=== PATIENT | female | born 1940 | race Caucasian/White ===

== ENCOUNTER 2019-01-30 10:38 | Emergency (ER) | payer MEDICARE ==
[~2019-01-30] VITALS: Ht 172.7 cm; Wt 73.0 kg
[~2019-01-30 10:38] MED LIST: AMIT-189 PO; ATOR10TA87 PO; COR3.125T PO; DIGO125T PO; FLAX100019 PO; GABA-338 PO; GLUC1CAP33 PO; ISOS30TA PO; NORCO10T PO; OMEG1CAP54 PO; OMEP-84 PO; REM15T PO; VALS40TA2 PO; VITC500T PO; VITE1000C PO
--- NOTE | 2019-01-30 11:51 | NUR ---
PATIENT WENT FOR ESOPHAGRAM AND HAS RETURNED TO ROOM. 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 SITTING UP ON GURNEY. RESP UNLABORED.
[2019-01-30] MEDS ORDERED: normal saline 1000ML IV soln IVB ONE (11:55)
--- NOTE | 2019-01-30 12:32 | NUR ---
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 Pt will return to the ED after the procedure.
[2019-01-30 12:35] VITALS: BP 127/73
[2019-01-30] MEDS ORDERED: MIDAZolam 5mg/5ml vial ONE ×3 (12:58→13:43)
[2019-01-30] MEDS ORDERED: LIDOcaine Viscous 15ml cup ONE (12:58)
[2019-01-30] MEDS ORDERED: fentaNYL/PF 50MCG/1 ML 2ML syringe ONE ×2 (12:58→13:43)
--- NOTE | 2019-01-30 13:27 | NUR ---
Pt remains in GI suite at this time.
[2019-01-30 14:39] VITALS: BP 147/74
[2019-01-30 14:49] VITALS: BP 145/69
[2019-01-30 14:59] VITALS: BP 121/68
[2019-01-30 15:09] VITALS: BP 132/68
--- NOTE | 2019-01-30 16:04 | NUR ---
Pt returned from GI lab. Procedure completed. Pt tolerated well. Pt was given 14mg versed IV and 300mcg Fentanyl IV during the procedure. Pt was recovered back to baseline in the GI lab.
--- NOTE | 2019-01-30 16:06 | NUR ---
Pt to be observed in the ED for a short time then discharge to home.
[2019-01-30 16:21] VITALS: BP 129/51
== END 2019-01-30 16:30 | disposition home or self-care (01) ==
LOC: ER 10:38
DX: T18.128A Food in esophagus causing other injury, initial encounter (principal); K22.0 Achalasia of cardia; R13.10 Dysphagia, unspecified; I48.91 Unspecified atrial fibrillation; G89.29 Other chronic pain; Z90.49 Acquired absence of other specified parts of digestive tract; Z98.890 Other specified postprocedural states; Z88.5 Allergy status to narcotic agent; Z88.1 Allergy status to other antibiotic agents; Z79.899 Other long term (current) drug therapy; Y92.89 Other specified places as the place of occurrence of the external cause
CPT/HCPCS: 43247; 74220; 99152; 99153; 99285; C1726; C1769; J2250; J3010; J7030; J7040; A4620